=== PATIENT | male | born 1980 | race American Indian/Alaskan Native ===

== ENCOUNTER 2017-09-01 18:34 | Emergency (ER) | payer SELFPAY ==
[2017-09-01 19:32] LABS: Basophils % (Auto) 0.5 % (0.0-1.8); Eosinophils # (Auto) 0.2 K/mm3 (0.0-0.4); Hematocrit 45.6 % (35.5-45.6); Hemoglobin 14.5 gm/dl (11.8-15.2); Lymphocytes # (Auto) 3.4 K/mm3 (1.2-5.4); Lymphocytes % (Auto) 42.8 % (13.4-35.0); Mean Corpuscular HGB Conc 32 % (32-34); Mean Corpuscular Hemoglobin 27 pg (28-32); Mean Corpuscular Volume 85 fl (84-94); Monocytes # (Auto) 0.6 K/mm3 (0.0-0.8); Monocytes % (Auto) 7.2 % (0.0-7.3); Platelet Count 167 K/mm3 (140-440); Red Blood Count 5.34 M/mm3 (3.65-5.03); Red Cell Distribution Width 13.5 % (13.2-15.2)
[2017-09-01 19:34] LABS: Bilirubin,Urine NEG (Negative); Blood,Urine NEG (Negative); Color,Urine Yellow (Yellow); Mucus,Urine FEW /HPF; Protein,Urine <15 mg/dL mg/dL (Negative); Urobilinogen,Urine < 2.0 mg/dL (<2.0)
[2017-09-01 19:49] LABS: Alanine Aminotransferase 14 units/L (7-56); Albumin 4.6 g/dL (3.9-5); BUN/Creatinine Ratio 13; Blood Urea Nitrogen 14 mg/dL (9-20); Calcium 9.6 mg/dL (8.4-10.2); Hemolysis Index 7; Lipase 82 units/L (13-60)
[2017-09-01 20:52] VITALS: BP 118/78
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
[2017-09-01] MEDS ORDERED: NACL 0.9% 1000 ML 1,000 ML IV ONE (21:26)
[2017-09-01] MEDS ORDERED: TORADOL IV ONE (21:26)
[2017-09-01] MEDS ORDERED: ZOFRAN IV ONE (21:27)
--- NOTE | 2017-09-01 21:42 | Cat Scan Report ---
FINAL REPORT EXAM: CT ABDOMEN PELVIS WO CON HISTORY: flank pain TECHNIQUE: Spiral CT scanning of the abdomen and pelvis. No oral or IV contrast administered. Multiplanar reformations. PRIORS: None. FINDINGS: Abdomen: Visualized lung bases grossly unremarkable. Solid organ evaluation is limited due to lack of IV contrast. The kidneys are grossly unremarkable. No intrarenal calculi, significant hydronephrosis or abnormal perinephric fluid collection. No radiopaque gallstones. Remainder of visualized abdominal parenchyma grossly unremarkable. Pelvis: No appreciable calcifications or significant dilatation in the distal ureters. Bowel grossly unremarkable. Appendix within normal limits. No significant free peritoneal fluid or loculated fluid collection. Abdominal aorta non-aneurysmal. IVC filter noted. IMPRESSION: 1. No evidence of urolithiasis or signficant hydronephrosis.
== END 2017-09-01 23:15 | disposition home or self-care (01) ==
LOC: ED 18:34
DX: R10.32 Left lower quadrant pain (principal); F17.200 Nicotine dependence, unspecified, uncomplicated
CPT/HCPCS: 36415; 74176; 80053; 81001; 83690; 84703; 85025; 96361; 96374; 96375; 99284; J1885; J2405; J7030

== ENCOUNTER 2018-07-16 12:11 | Emergency (ER) | payer OTHER ==
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
--- NOTE | 2018-07-16 13:12 | XRay Report ---
THORACIC SPINE, 2 VIEWS: HISTORY: back pain. Normal bone mineralization. No evidence for compression deformity, malalignment, or bone lesion. The posterior ribs are intact. The paraspinal soft tissues are within normal limits. IMPRESSION: Thoracic spine within normal limits.
--- NOTE | 2018-07-16 13:12 | XRay Report ---
AP AND LATERAL LUMBOSACRAL SPINE: History: Back pain. The vertebral bodies are well mineralized and normal in alignment and vertebral height with well preserved interspace distances. The visualized portions of the posterior elements are normal. IMPRESSION: Normal study.
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
[2018-07-16] MEDS ORDERED: TORADOL IM ONE (15:33)
[2018-07-16 16:50] VITALS: BP 120/78
== END 2018-07-16 16:48 | disposition home or self-care (01) ==
LOC: ED 12:11
DX: S86.912A Strain of unspecified muscle(s) and tendon(s) at lower leg level, left leg, initial encounter (principal); S86.911A Strain of unspecified muscle(s) and tendon(s) at lower leg level, right leg, initial encounter; G44.209 Tension-type headache, unspecified, not intractable; M54.5 Low back pain; F17.200 Nicotine dependence, unspecified, uncomplicated; V89.2XXA Person injured in unspecified motor-vehicle accident, traffic, initial encounter; Y93.89 Activity, other specified; Y92.488 Other paved roadways as the place of occurrence of the external cause; Y99.8 Other external cause status
CPT/HCPCS: 72070; 72100; 96372; 99283; J1885

== ENCOUNTER 2020-05-22 15:45 | Emergency (ER) | payer SELFPAY ==
[2020-05-22 16:30] VITALS: BP 153/90
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
[2020-05-22 17:10] LABS: Basophils % (Auto) 0.6 % (0.0-1.8); Eosinophils # (Auto) 0.2 K/mm3 (0.0-0.4); Hemoglobin 14.4 gm/dl (11.8-15.2); Lymphocytes # (Auto) 2.5 K/mm3 (1.2-5.4); Lymphocytes % (Auto) 43.8 % (13.4-35.0); Mean Corpuscular HGB Conc 33 % (32-34); Mean Corpuscular Volume 86 fl (84-94); Monocytes # (Auto) 0.5 K/mm3 (0.0-0.8); Monocytes % (Auto) 9.1 % (0.0-7.3); Platelet Count 152 K/mm3 (140-440); Red Blood Count 5.14 M/mm3 (3.65-5.03); Red Cell Distribution Width 13.6 % (13.2-15.2)
--- NOTE | 2020-05-22 17:11 | XRay Report ---
CHEST PA AND LATERAL VIEWS INDICATION: chest pain. COMPARISON: None FINDINGS: Support devices: None Heart: Normal Lungs/Pleura: No acute pulmonary or pleural findings. IMPRESSION: 1. No active disease. Signer Name: Radu Enamorado MD Signed: 05/22/2020 5:06 PM Workstation Name: [id number]
[2020-05-22 17:46] LABS: Alanine Aminotransferase 31 units/L (7-56); Albumin 4.7 g/dL (3.9-5); BUN/Creatinine Ratio 11; Blood Urea Nitrogen 11 mg/dL (9-20); Calcium 9.8 mg/dL (8.4-10.2); Hemolysis Index 23
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
--- NOTE | 2020-05-22 22:12 | XRay Report ---
ABDOMEN 2 VIEWS INDICATION / CLINICAL INFORMATION: Abd and flank pain. COMPARISON: None available. FINDINGS: IVC filter in position at L3-4. Bowel gas pattern is unremarkable, not indicative of obstruction. No gross abnormal mass or calcification. Erect view shows no free air. Lung bases are clear. Signer Name: Radu Enamorado MD Signed: 05/22/2020 10:08 PM Workstation Name: [id number]
== END 2020-05-22 23:09 | disposition home or self-care (01) ==
LOC: ED 15:45
DX: R10.9 Unspecified abdominal pain (principal); R07.89 Other chest pain; F17.200 Nicotine dependence, unspecified, uncomplicated; Z79.899 Other long term (current) drug therapy; Z98.890 Other specified postprocedural states
CPT/HCPCS: 36415; 71046; 74019; 80053; 84484; 85025; 93005

== ENCOUNTER 2021-02-20 00:48 | Emergency (ER) | payer SELFPAY ==
[2021-02-20] MEDS ORDERED: KETOROLAC 30 MG/1 ML INJ IV STA (02:13)
[2021-02-20 03:03] LABS: Basophils % (Auto) 0.5 % (0.0-1.8); Eosinophils # (Auto) 0.2 K/mm3 (0.0-0.4); Eosinophils % (Auto) 2.7 % (0.0-4.3); Hematocrit 40.7 % (35.5-45.6); Hemoglobin 13.6 gm/dl (11.8-15.2); Lymphocytes # (Auto) 3.1 K/mm3 (1.2-5.4); Lymphocytes % (Auto) 49.8 % (13.4-35.0); Mean Corpuscular HGB Conc 34 % (32-34); Mean Corpuscular Volume 84 fl (84-94); Monocytes # (Auto) 0.5 K/mm3 (0.0-0.8); Monocytes % (Auto) 8.3 % (0.0-7.3); Platelet Count 152 K/mm3 (140-440); Red Blood Count 4.86 M/mm3 (3.65-5.03); Red Cell Distribution Width 13.4 % (13.2-15.2)
[2021-02-20 03:19] LABS: Alanine Aminotransferase 17 units/L (7-56); Albumin 4.7 g/dL (3.9-5); BUN/Creatinine Ratio 14; Blood Urea Nitrogen 17 mg/dL (9-20); Calcium 9.6 mg/dL (8.4-10.2); Hemolysis Index 9
--- NOTE | 2021-02-20 07:06 | Cat Scan Report ---
CT ABDOMEN AND PELVIS WITH IV CONTRAST INDICATION: Abdominal pain. COMPARISON: 09/01/2017 TECHNIQUE: Axial CT images were obtained through the abdomen and pelvis after 100 mL Omnipaque [address] scans at this location are performed using CT dose reduction for ALARA by means of automated e xposure control. FINDINGS -- ABDOMEN: Lung Bases: No acute abnormality. Liver: Multiple small cysts. Gallbladder: Normal. Bile Ducts: Normal. Pancreas: Normal. Spleen: Normal. Adrenals: Normal. Right Kidney and Proximal Ureter: Normal. Left Kidney and Proximal Ureter: Normal. Stomach and Bowel: Normal. Lymph Nodes: Shotty retroperitoneal nodes, unchanged Aorta: No significant abnormality. IVC: IVC filter appears low within the IVC. Additional Findings: None. FINDINGS -- PELVIS: Urinary Bladder and Distal Ureters: Normal. Reproductive Organs: No acute abnormality. Appendix: Normal. Bowel: No acute abnormality. Free Fluid: None. Lymph Nodes: No significant adenopathy. Additional Findings: None. Skeletal System: No acute abnormality. IMPRESSION: 1. No acute process in the abdomen or pelvis. 2. IVC Filter Recommendation: IVC filters should be removed if possible when they are no longer clini farida necessary. (1) Refer to the established IVC filter management plan; (2) If there is no establis hed plan for the patient's IVC filter, consider referral to interventional/vascular clinician on a no nemergent basis for evaluation. Signer Name: Jon Flannery MD Signed: 02/20/2021 7:02 AM Workstation Name: [id number]
--- NOTE | 2021-02-20 08:59 | Emergency Department Report ---
ED Back Pain/Injury HPI - General Chief Complaint: Back Pain/Injury Stated Complaint: CHEST/SIDE/LOWER BACK PAIN Time Seen by Provider: 02/20/21 02:09 Source: patient Limitations: No Limitations - History of Present Illness MD Complaint: back pain -: month(s) (3) Radiation: abdomen, flank Severity: mild, moderate Quality: dull, aching Consistency: constant Improves With: none Worsens With: movement ( and deep) Associated Symptoms: difficulty walking, abdominal pain. denies: cough, difficulty urinating, diaphoresis, incontinence, fever/chills, constipation, headaches, malaise, seizure, shortness of breath - Related Data Previous Rx's Medication Instructions Recorded Last Taken Type Acetaminophen/Codeine [Tylenol 1 tab PO Q6H PRN #10 tab 09/01/17 Unknown Rx /Codeine # 3 tab] Famotidine [Pepcid] 20 mg PO BID #28 tablet 09/01/17 Unknown Rx Naproxen [Naprosyn] 500 mg PO TID PRN #15 tablet 07/16/18 Unknown Rx methOCARBAMOL [Robaxin TAB] 500 mg PO BID PRN #12 tab 07/16/18 Unknown Rx HYDROcodone/APAP 5-325 [[place] 1 each PO Q6HR PRN #10 tablet 05/22/20 Unknown Rx 5/325] Ketorolac [Toradol] 10 mg PO Q6H PRN #14 tablet 02/20/21 Unknown Rx methOCARBAMOL [Robaxin TAB] 750 mg PO Q8H #20 tablet 02/20/21 Unknown Rx Allergies Allergy/AdvReac Type Severity Reaction Status Date / Time No Known Allergies Allergy Verified 07/16/18 12:31 ED Review of Systems ROS: Stated complaint: CHEST/SIDE/LOWER BACK PAIN Other details as noted in HPI ED Past Medical Hx - Past Medical History Previous Medical History?: Yes Additional medical history: IVC filter - Surgical History Past Surgical History?: Yes Additional Surgical History: Keith left filter - Social History Smoking Status: Current Every Day Smoker - Medications Home Medications: Home Medications Medication Instructions Recorded Confirmed Last Taken Type Acetaminophen/Codeine [Tylenol 1 tab PO Q6H PRN #10 tab 09/01/17 Unknown Rx /Codeine # 3 tab] Famotidine [Pepcid] 20 mg PO BID #28 tablet 09/01/17 Unknown Rx Naproxen [Naprosyn] 500 mg PO TID PRN #15 tablet 07/16/18 Unknown Rx methOCARBAMOL [Robaxin TAB] 500 mg PO BID PRN #12 tab 07/16/18 Unknown Rx HYDROcodone/APAP 5-325 [[place] 1 each PO Q6HR PRN #10 tablet 05/22/20 Unknown Rx 5/325] Ketorolac [Toradol] 10 mg PO Q6H PRN #14 tablet 02/20/21 Unknown Rx methOCARBAMOL [Robaxin TAB] 750 mg PO Q8H #20 tablet 02/20/21 Unknown Rx ED Physical Exam - General Limitations: No Limitations ED Medical Decision Making - Lab Data Result diagrams: 02/20/21 02:38 02/20/21 02:38 Critical care attestation.: If time is entered above; I have spent that time in minutes in the direct care of this critically ill patient, excluding procedure time. ED Disposition Disposition: 01 HOME / SELF CARE / HOMELESS Condition: Stable Instructions: Acute Back Pain, Adult, Flank Pain, Adult Prescriptions: methOCARBAMOL [Robaxin TAB] 750 mg PO Q8H #20 tablet Ketorolac [Toradol] 10 mg PO Q6H PRN #14 tablet PRN Reason: Pain Referrals: [facility] [Provider Group] - 3-5 Days PRIMARY CARE, [Primary Care Provider] - 3-5 Days
[2021-02-20 09:18] VITALS: BP 130/86
== END 2021-02-20 09:18 | disposition home or self-care (01) ==
LOC: ED 00:48
DX: M54.9 Dorsalgia, unspecified (principal); R26.2 Difficulty in walking, not elsewhere classified; R10.9 Unspecified abdominal pain; Z98.890 Other specified postprocedural states; F17.200 Nicotine dependence, unspecified, uncomplicated
CPT/HCPCS: 36415; 74177; 80053; 83690; 85025; 96374; 99284; J1885; Q9967